=== PATIENT | male | born 2000 | race Caucasian/White ===

== ENCOUNTER 2021-04-25 02:28 | Emergency (ER) | payer OTHER ==
--- NOTE | 2021-04-25 02:58 | EDM.PDOC ---
ED [facility] GENERAL MEDICAL PROBLEM - General Chief Complaint: Lower Extremity Injury/Pain Stated Complaint: PATIENT DROPPED SOMETHING ON HIS FOOT Time Seen by Provider: 04/25/21 02:55 Source of Information: Reports: Patient History Limitations: Reports: No Limitations - History of Present Illness INITIAL COMMENTS - FREE TEXT/NARRATIVE: Dannie cpompraizain of pain in the right great toe. He droped a 30 lbs weight on it accidentally,at work,resulted in some bleeding. Pain is moderate. Right Toe-Hailux Pain Score (Numeric/FACES): 8 - Related Data Allergies Allergy/AdvReac Type Severity Reaction Status Date / Time cephalexin Allergy Hives Verified 04/25/21 03:01 Review of Systems - Review of Systems Review Of Systems: Comprehensive ROS is negative, except as noted in HPI. ED EXAM, GENERAL - Physical Exam Exam: See Below Exam Limited By: No Limitations General Appearance: Alert, WD/WN, Other (pale) Ear Exam: Bilateral Ear: Auricle Normal, Canal Normal, TM normal Nose: Normal Inspection Throat/Mouth: Normal Inspection Extremities: Joint Swelling (Fist DIP joint,left), Other (ingrwon toenalil.Tender,red,first great toe) Course - Vital Signs Last Recorded V/S: Last Vital Signs Temp 96.1 F L 04/25/21 02:38 Pulse 80 04/25/21 04:00 Resp 16 04/25/21 04:00 BP 142/58 H 04/25/21 04:00 Pulse Ox 100 04/25/21 04:00 - Orders/Labs/Meds Labs: Laboratory Tests 04/25/21 04/25/21 Range/Units 02:52 02:52 WBC 11.8 H (3.2-10.1) x10-3/uL RBC 5.66 (3.90-5.90) x10(6)uL Hgb 16.5 (12.9-17.7) g/dL Hct 47.6 (38.3-50.1) % MCV 84.2 (80.8-98.7) fL MCH 29.1 (27.0-33.3) pg MCHC 34.6 (28.7-35.3) g/dL RDW 12.9 (12.4-15.0) % Plt Count 289 (117-477) x10(3)uL MPV 9.0 (6.7-11.0) fL Neut % (Auto) 51.7 (40.3-71.8) % Lymph % (Auto) 34.7 (15.8-45.3) % [place] % (Auto) 9.2 (5.5-15.2) % Eos % (Auto) 3.3 (0.1-6.8) % Baso % (Auto) 1.1 (0.3-3.8) % Neut # (Auto) 6.1 (1.7-6.9) x10-3/uL Lymph # (Auto) 4.1 (0.5-4.5) x10-3/uL [place] # (Auto) 1.1 (0.0-1.2) x10-3/uL Eos # (Auto) 0.4 (0.0-0.6) x10-3/uL Baso # (Auto) 0.1 (0.0-0.3) x10-3/uL Sodium 144 (135-145) mmol/L Potassium 3.6 (3.5-5.3) mmol/L Chloride 104 (100-110) mmol/L Carbon Dioxide 24 (21-32) mmol/L BUN 16 (7-18) mg/dL Creatinine 1.2 (0.70-1.30) mg/dL Est Cr Clr Drug Dosing 94.21 mL/min Estimated GFR (MDRD) > 60 (>60) BUN/Creatinine Ratio 13.3 (9-20) Glucose 107 (80-116) mg/dL Calcium 8.7 (8.6-10.2) mg/dL Meds: Medications Discontinued Medications Generic Name Dose Route Start Last Admin Trade Name Freq PRN Reason Stop Dose Admin Sodium Chloride 1,000 mls @ 999 mls/hr 04/25/21 03:00 04/25/21 03:00 Normal Saline IV 999 mls/hr ASDIRECTED GEO Administration Departure - Departure Time of Disposition: 19:44 Disposition: Home, Self-Care 01 Clinical Impression: Closed fracture of metatarsal bone - Discharge Information Instructions: RICE Therapy for Routine Care of Injuries, [id number], Toe Fracture, [id number] Referrals: PCP,Unknown [Ordering Only Provider] - 04/29/21 Forms: ED Department Discharge Additional Instructions: Activity as tolerated Ice and elevate Tylenol or ibuprofen as needed for pain Frank tape toes if needed Boot on when ambulating Follow up at clinic on Thursday04/26/2021 - Problem List & Annotations (1) Toe injury SNOMED Code(s): 340598166 Code(s): S99.929A - UNSPECIFIED INJURY OF UNSPECIFIED FOOT, INITIAL ENCOUNTER Status: Acute Qualifiers: Encounter type: initial encounter Laterality: right Qualified Code(s): S99.921A - Unspecified injury of right foot, initial encounter (2) Vaso vagal episode SNOMED Code(s): 164593606 Code(s): R55 - SYNCOPE AND COLLAPSE Status: Acute - Problem List Review Problem List Initiated/Reviewed/Updated: Yes - Assessment/Plan Plan: RICE. 1 L Normal saline . Follow up in office
[2021-04-25] MEDS ORDERED: Sodium Chloride 0.9% 1,000 ML IV SCH (03:00)
== END 2021-04-25 04:35 | disposition home or self-care (01) ==
LOC: FB.ED 02:28
DX: S92.312A Displaced fracture of first metatarsal bone, left foot, initial encounter for closed fracture (principal); L60.0 Ingrowing nail; Z88.1 Allergy status to other antibiotic agents; W20.8XXA Other cause of strike by thrown, projected or falling object, initial encounter
CPT/HCPCS: 36415; 73630; 80048; 85025; 99000; 99283; J7030